=== PATIENT | female | born 1950 | race Caucasian/White ===

== ENCOUNTER 2016-10-31 07:46 | Day surgery (SDC) | payer OTHER, BC ==
[2016-10-29 09:28] VITALS: BMI 21.6
[2016-10-31] MEDS ORDERED: LIDOCAINE HCL/PF 2% SDV 5ML VIAL ONE (08:04)
[2016-10-31] MEDS ORDERED: PROPOFOL 20 ML ONE ×2 (08:04)
[2016-10-31 09:33] VITALS: TEMP 97.8
[2016-10-31 10:04] VITALS: BP 112/64; PULSE 62
== END 2016-10-31 10:06 | disposition home or self-care (01) ==
LOC: FASU-ENDO 07:46
PROVIDERS: ATTEND Internal Medicine Gastroenterology
PROC: 0DJD8ZZ Inspection of Lower Intestinal Tract, Via Natural or Artificial Opening Endoscopic (ICD-10-PCS; principal; 2016-10-31 09:15)
DX: Z12.11 Encounter for screening for malignant neoplasm of colon (principal); Z80.0 Family history of malignant neoplasm of digestive organs; K57.30 Diverticulosis of large intestine without perforation or abscess without bleeding

== ENCOUNTER 2022-01-24 07:48 | Day surgery (SDC) | payer OTHER, BC ==
[2022-01-16 13:55] VITALS: BMI 21.6
[2022-01-24 09:00] VITALS: RESP 18; TEMP 97
[2022-01-24 09:21] VITALS: BP 98/44; PULSE 68
== END 2022-01-24 09:24 | disposition home or self-care (01) ==
LOC: FASU-ENDO 07:48
PROVIDERS: ATTEND Internal Medicine Gastroenterology
PROC: 0DJD8ZZ Inspection of Lower Intestinal Tract, Via Natural or Artificial Opening Endoscopic (ICD-10-PCS; principal; 2022-01-24 08:34)
DX: Z12.11 Encounter for screening for malignant neoplasm of colon (principal); Z80.0 Family history of malignant neoplasm of digestive organs; K57.30 Diverticulosis of large intestine without perforation or abscess without bleeding